=== PATIENT | male | born 1985 | race American Indian/Alaskan Native ===

== ENCOUNTER 2017-01-31 22:44 | Emergency (ER) | payer SELFPAY ==
[2017-02-01 02:49] VITALS: BP 159/109
--- NOTE | 2017-02-01 07:28 | XRay Report ---
Right foot 2 views: History: Right foot pain. Findings: There is transverse fracture noted at base of the proximal phalanx second toe right foot. Impression: Fracture base of proximal phalanx second toe right foot.
== END 2017-01-31 23:46 | disposition left against medical advice (07) ==
LOC: ED 22:44
DX: M79.671 Pain in right foot (principal); Z53.21 Procedure and treatment not carried out due to patient leaving prior to being seen by health care provider